=== PATIENT | female | born 1970 ===

== ENCOUNTER 2016-09-06 19:34 | Emergency (ER) | payer SELFPAY ==
[2016-09-06 19:34] VITALS: BMI 25.1
[2016-09-06 20:02] VITALS: BP 119/80; PULSE 60; RESP 18; TEMP 98.2; O2SAT 100
[2016-09-06] MEDS ORDERED: Lactated Ringer's 1,000 ML IV STA (20:28)
[2016-09-06 20:42] LABS: BASO % 0.5 % (0.0-2.0); EOS % 0.4 % (0.0-4.0); HEMATOCRIT 37.2 % (34.0-47.0); LYMPH # 2.4 K/uL (1.0-4.3); LYMPH % 30.3 % (20.0-40.0); MEAN CELL VOLUME 92.6 fl (81.0-99.0); MEAN CORPUSCULAR HEMOGLOBIN 30.6 pg (27.0-31.0); MEAN PLATELET VOLUME 9.5 fl (7.2-11.7); MONO # 0.6 K/uL (0.0-0.8); MONO % 7.7 % (0.0-10.0); NEUT # 4.8 K/uL (1.8-7.0); NEUT % 61.1 % (50.0-75.0); NRBC % 0.1 % (0.0-0.0); WHITE BLOOD COUNT 7.8 K/uL (4.8-10.8)
[2016-09-06 20:50] LABS: ALB/GLOB RATIO 1.3 (1.0-2.1); ALKALINE PHOSPHATASE 76 U/L (38-126); ALT/SGPT 26 U/L (9-52); AST/SGOT 23 U/L (14-36); BILIRUBIN,TOTAL 0.2 mg/dl (0.2-1.3); BLOOD UREA NITROGEN 12 mg/dl (7-17); CALCIUM 9.2 mg/dL (8.4-10.2); CARBON DIOXIDE 23 mmol/L (22-30); CHLORIDE 103 mmol/L (98-107); GFR AFRICAN-AMERICAN > 60; GLUCOSE,RANDOM 91 mg/dL (65-105); POTASSIUM 3.7 MMOL/L (3.6-5.0); SODIUM 137 mmol/l (132-148); TOTAL PROTEIN 7.5 G/DL (6.3-8.2)
--- NOTE | 2016-09-06 21:29 | ED PDOC ---
HPI: Abdomen Time Seen by Provider: 09/06/16 20:12 Chief Complaint (Nursing): Abdominal Pain Chief Complaint (Provider): Abdominal Pain History Per: Patient History/Exam Limitations: no limitations Onset/Duration Of Symptoms: Hrs Current Symptoms Are (Timing): Still Present Additional Complaint(s): 46 y/o female presents to the emergency department with a complaint of abdominal cramping that began around 4pm today but started worsening at 6pm. Associated with nausea. Patient states she had been experiencing episodes of vaginal spotting but was unsure due to difficulty of determining if it was her period. Admits she is taking vitamins and will have her first clinic appointment on Tuesday. On August 17, patient visited the ED and was told she was . Denies vomiting, dysuria, or frequency of urination. Of note, patient is now 12 weeks . ; with 1 spontaneous miscarriage. PMD: Dr. Isiah RODRIGUEZ Past Medical History Reviewed: Historical Data, Nursing Documentation, Vital Signs Vital Signs: Last Vital Signs Temp 98.2 F 09/06/16 19:58 Pulse 60 09/06/16 19:58 Resp 18 09/06/16 19:58 BP 119/80 09/06/16 19:58 Pulse Ox 100 09/06/16 21:40 - Medical History PMH: No Chronic Diseases - Surgical History Surgical History: No Surg Hx - Family History Family History: States: Unknown Family Hx - Social History Current smoker - smoking cessation education provided: No Alcohol: None Drugs: Denies - Immunization History Hx Tetanus Toxoid Vaccination: No Hx Influenza Vaccination: No Hx Pneumococcal Vaccination: No - Home Medications Home Medications: Ambulatory Orders Medication Instructions Recorded Multivit/Folic Acid/I 1 tab PO DAILY #14 tab 08/17/16 [ Plus] - Allergies Allergies/Adverse Reactions: Allergies Allergy/AdvReac Type Severity Reaction Status Date / Time No Known Allergies Allergy Verified 08/17/16 09:38 Review of Systems ROS Statement: Except As Marked, All Systems Reviewed And Found Negative Gastrointestinal: Positive for: Nausea, Abdominal Pain (Cramping). Negative for : Vomiting Genitourinary Female: Positive for: Other (Episodes of vaginal spotting ). Negative for: Dysuria, Frequency Physical Exam - Reviewed Nursing Documentation Reviewed: Yes Vital Signs Reviewed: Yes - Physical Exam Appears: Positive for: Non-toxic, In Acute Distress (Mild) Head Exam: Positive for: ATRAUMATIC, NORMOCEPHALIC Skin: Positive for: Normal Color, Warm, Dry Eye Exam: Positive for: Normal appearance. Negative for: Conjunctival injection ENT: Positive for: Normal ENT Inspection. Negative for: Tonsillar Swelling Neck: Positive for: Normal, Supple Cardiovascular/Chest: Positive for: Regular Rate, Rhythm. Negative for: Murmur Respiratory: Positive for: Normal Breath Sounds. Negative for: Accessory Muscle Use, Respiratory Distress Gastrointestinal/Abdominal: Positive for: Soft, Tenderness (mild suprapubic tenderness to palpation) Back: Positive for: Normal Inspection Extremity: Positive for: Normal ROM. Negative for: Pedal Edema Neurologic/Psych: Positive for: Alert, Oriented - Laboratory Results Result Diagrams: 09/06/16 20:30 09/06/16 20:30 - ECG O2 Sat by Pulse Oximetry: 100 (RA) Pulse Ox Interpretation: Normal Medical Decision Making Medical Decision Making: Time: 20:12 Initial impression: Pelvic cramping in high risk Initial plan: --Beta-HCG, Quantitative --COMP Metabolic Panel --ED Urine Dipstick (POC) --ED Urine (POC) --Lactated Ringers 1,000 ml IV 1,000 mls/hr --IV Insertion --OB US --Revaluation EXAM: US First Trimester, Transabdominal CLINICAL HISTORY: 46 years old, female; Pain; Other: Pelvic pain; Gestational age or lmp: Unknown ; ; Additional info: Pelvic pain preg R/O demise TECHNIQUE: Real-time transabdominal obstetrical ultrasound of the maternal pelvis and a first trimester with image documentation. COMPARISON: No relevant prior studies available. FINDINGS: Gestation: Single live intrauterine gestation. heart rate of 168 beats per minute. Nebo-rump length of 5.26 cm, correlating with gestational age of 12 weeks 0 days. Uterus/cervix: No subchorionic hemorrhage. No cervical dilatation or effacement. Ovaries: Not visualized. No adnexal masses. Free fluid: No significant free fluid. IMPRESSION: 1. Single live intrauterine gestation. 2. Incidental/non-acute findings are described above. Thank you for allowing us to participate in the care of your patient. Dictated and Authenticated by: Michael Snow MD 09/06/2016 9:54 PM Eastern Time ([place] & [place]) Scribe Attestation: Documented by Alessandra De Los Santos, acting as a scribe for Dawn Singh MD. Provider Scribe Attestation: All medical record entries made by the Scribe were at my direction and personally dictated by me. I have reviewed the chart and agree that the record accurately reflects my personal performance of the history, physical exam, medical decision making, and the department course for this patient. I have also personally directed, reviewed, and agree with the discharge instructions and disposition. Disposition - Clinical Impression Clinical Impression: Abdominal cramps Counseled Patient/Family Regarding: Studies Performed, Diagnosis, Need For Followup - Disposition Disposition: Routine/Home Disposition Time: 23:00 Condition: STABLE Additional Instructions: REID MUCHO LIQUIDOS VISITA KHOURY DOCTOR POR KHOURY ELVIS ESTA SEMANA Instructions: Abdominal Pain in (ED) Forms: [facility] ED School/Work Excuse Print Language: CENTRAL AFRICAN
--- NOTE | 2016-09-07 10:27 | US ---
Indication: pelvic pain preg r/o demise Comparison: Ob transvaginal ultrasound performed 08/17/16 Technique: Transabdominal pelvic ultrasound. Findings: Anteverted uterus. Cervix length measures approximately 3.9 cm. There is a single intrauterine fetus present. Yolk sac is not identified. The gestational sac measures 5.7 cm and is compatible with a gestational age of 11 weeks 5 days. The crown-rump length measures 5.3 cm and is compatible with a gestational age of 12 weeks 0 days. There is heart motion which measured 168 BPM. Bilateral ovaries are not visualized. Impression: Live single intrauterine with estimated gestational age 11 weeks 5 days by gestational sac calculation and 12 weeks 0 days by crown-rump length. heart rate 168 bpm. Advise an anomaly screen at 16-18 weeks gestational age Preliminary impression was provided by virtual radiologic.
== END 2016-09-06 23:10 | disposition home or self-care (01) ==
LOC: H.ER 19:34
DX: O26.891 Other specified pregnancy related conditions, first trimester (principal); R10.2 Pelvic and perineal pain; Z3A.12 12 weeks gestation of pregnancy; O21.9 Vomiting of pregnancy, unspecified
CPT/HCPCS: 76815; 80053; 81025; 84702; 85025; 96360; 99284; J7120

== ENCOUNTER 2016-11-12 09:47 | Emergency (ER) | payer SELFPAY ==
--- NOTE | 2016-11-15 08:50 | OBHP ---
Datetime: 11/12/2016 12:52 IP Adm Impression: , intrauterine ; No Active Labor IP Admit Plan: Observation/Evaluation; Discharge home Admit Comment, IP Provider: The patient is a 46-year-old 4 para 2 estimated due date 017 estimated gestational age 21 weeks patient presents to labor and delivery complaining of abdomina l discomfort located on the left side crampy in nature. Patient had no medication for the pain patien t denies any vaginal bleeding or leakage of fluid or uterine contractions. Patient reports good movement states her care has been unremarkable Past medical history none Past surgical history none No known drug allergies Social history denies alcohol tobacco use 2 normal spontaneous vaginal deliveries Review of systems patient denies headache chest pain shortness of breath palpitations nausea vomit ing vaginal bleeding dysuria or cold intolerance she's principally musculoskeletal or neurological co mplaints Vital signs stable afebrile Physical exam see notes Intrauterine at 21+3 weeks No uterine contractions noted on tocometer Round ligament pain Tylenol for discomfort labor precautions Follow-up PMD Bedside sonogram placenta fundal fetus transverse Pelvic Type - PN: Adequate Extremities - PN: Normal Abdomen - PN: Normal Back - PN: Normal Lungs - PN: Normal Heart - PN: Normal Thyroid - PN: Normal Neurologic - PN: Normal HEENT - PN: Normal General - PN: Normal FHR - Baseline A Provider: 145 Gestation - Est Wks by US: 21.0 EGA AdmitDate IP: 21.4 Vital Signs Provider: Reviewed IP Chief Complaint: Maternal discomfort NICHD Decel Fetus A IP Provider: None Dilatation, Provider: 0 Effacement, Provider: 0 Station, Provider: -2 Genitourinary Exam: Normal DTRs - PN: Normal
== END 2016-11-12 10:55 | disposition home or self-care (01) ==
LOC: H.EROB2 09:47 → H.EROB 09:47 → MERGE 09:47 → H.EROB2 10:55
DX: O47.02 False labor before 37 completed weeks of gestation, second trimester (principal); Z3A.21 21 weeks gestation of pregnancy

== ENCOUNTER 2017-02-08 22:20 | Emergency (ER) | payer SELFPAY ==
[2017-02-08 22:55] VITALS: BMI 32.0
--- NOTE | 2017-02-09 00:10 | OBHP ---
Datetime: 02/08/2017 23:23 IP Adm Impression: , intrauterine ; No Active Labor IP Admit Plan: Observation/Evaluation; Discharge home Admit Comment, IP Provider: 46 y/o at 34.1wks gestation with ALVERTO on 02/19 presents to [facility] with complaints of vaginal spotting x 10hours and intermittent abdominal pain q 1.5hrs. [place] tinge noted on toilet paper. Reports mild white vaginal discharge. Pt denies loss of fluid, hx of trauma, vagina l itchiness, fever, chills. Currently, pain scale 0. REports goof movement. PNC: Seen at [facility], last U/S 02/01 no previa, cephalic ObsHx: 2 prior , full term w/ no complications, 1 SAB 1 st trimester PMHx: denies SurgHx: denies RxMeds: PNV Allergies: Denies Triage Vitals: BP 100/61, HR 51, Afebrile General: NAD, comfortable Sterile Speculum Exam: Cervix closed, inflammed, no active bleeding from cervical os, +white clump y discharge Pelvic exam: Cervix 1cm Assessment: IUP at 34wks with vaginal bleeding found to have inflamed cervix with discharge. No si gns of labor. Reassuring heart tracings. Likely cervicitis 2/2 to fungal infection. Will observ e patient, continuous monitoring. D/C home with Terazole x 7 days. Advised patient to followup with OB as scheduled. Pt verbalized understanding. Discussed case with OB Attending, Dr. Robert Alves, PGY1 The patient was seen with the resident I agree with the note Pelvic Type - PN: Adequate Extremities - PN: Normal Abdomen - PN: Normal Back - PN: Normal Breast - PN: Not Done Lungs - PN: Normal Heart - PN: Normal Thyroid - PN: Normal Neurologic - PN: Normal HEENT - PN: Normal General - PN: Normal FHR - Baseline A Provider: 145 Pool Provider: Negative EGA AdmitDate IP: 34.1 Vital Signs Provider: Reviewed IP Chief Complaint: Vaginal bleeding NICHD Variability Prov Fetus A: Moderate 6-25bpm NICHD Accel Fetus A IP Provider: 15X15 NICHD Decel Fetus A IP Provider: None Dilatation, Provider: 0 Effacement, Provider: 0 Station, Provider: -2 Genitourinary Exam: Normal DTRs - PN: Normal
[2017-02-09 05:25] VITALS: BP 116/70; PULSE 56; RESP 18; TEMP 97.5; O2SAT 96
== END 2017-02-09 00:15 | disposition home or self-care (01) ==
LOC: H.EROB2 22:20
DX: O26.853 Spotting complicating pregnancy, third trimester (principal); O47.03 False labor before 37 completed weeks of gestation, third trimester; Z3A.34 34 weeks gestation of pregnancy

== ENCOUNTER 2017-03-04 10:44 | Inpatient (IN) | payer MEDICAID, SELFPAY ==
[2017-03-04] MEDS ORDERED: Lactated Ringer's 1,000 ML IV SCH (15:00)
[2017-03-04] MEDS: Lactated Ringer's 1,000 ML IV SCH ×2 (15:43→21:24)
[2017-03-04] MEDS ORDERED: Oxytocin 10 Units/ml Inj ONE (15:53)
[2017-03-04 15:59] LABS: BASO % 0.2 % (0.0-2.0); EOS % 0.1 % (0.0-4.0); LYMPH % 21.4 % (20.0-40.0); MEAN CELL VOLUME 91.8 fl (81.0-99.0); MEAN CORPUSCULAR HEMOGLOBIN 29.6 pg (27.0-31.0); MEAN CORPUSCULAR HGB CONC 32.2 g/dL (33.0-37.0); MEAN PLATELET VOLUME 12.2 fl (7.2-11.7); MONO # 0.5 K/uL (0.0-0.8); MONO % 5.4 % (0.0-10.0); NEUT # 6.7 K/uL (1.8-7.0); NEUT % 72.9 % (50.0-75.0); NRBC % 0.1 % (0.0-0.0); RED CELL DISTRIBUTION WIDTH 14.4 % (11.5-14.5); WHITE BLOOD COUNT 9.2 K/uL (4.8-10.8)
[2017-03-04] MEDS ORDERED: Lidocaine 1% Inj (20ml) ONE (16:41)
[2017-03-04] MEDS ORDERED: Oxytocin 30 UNITS in Sodium Chloride 0.9% 500 ML IV ONE (17:25)
--- NOTE | 2017-03-04 22:25 | OBPN ---
Datetime: 03/04/2017 22:18 IP Progress Impression: Normal progression of labor IP Informed Consent Obtain: Vaginal Delivery IP Procedures: Sterile Vag Exam IP Progress Plan: Continue present management Contraction Comments Provider: q 2-3 mins FHR - Baseline A Provider: 150 IP Progress Note Comment: Patient reports increased pain. VE=1/50/-2 BTK=000 mod josué, +accels, no decels TOCO = ctxning q 2-3 mins A/P 1. Continue Cytotec for augmentation 2. CEFM and TOCO 3. Re-evaluate as needed Vital Signs Provider: Reviewed; Within Normal Limits NICHD Accel Fetus A IP Provider: [id number] NICHD Variability Prov Fetus A: Moderate 6-25bpm Dilatation, Provider: 1 Effacement, Provider: 50 Station, Provider: Patient-2 NICHD Decel Fetus A IP Provider: None Datetime: 03/04/2017 18:35 Pool Provider: Positive Nitrazine Provider: Negative Datetime: 03/04/2017 18:25 FHR Category Provider Fetus A: Category I Datetime: 11/12/2016 12:52 Gestation - Est Wks by US: 21.0
[2017-03-04] MEDS ORDERED: Fentanyl/Bupivacaine HCl 250 ML EPI ONE (22:32)
--- NOTE | 2017-03-04 22:39 | OBADHP ---
Datetime: 03/04/2017 22:18 FHR - Baseline A Provider: 150 Contraction Comments Provider: q 2-3 mins Vital Signs Provider: Reviewed; Within Normal Limits NICHD Variability Prov Fetus A: Moderate 6-25bpm NICHD Accel Fetus A IP Provider: [id number] NICHD Decel Fetus A IP Provider: None Dilatation, Provider: 1 Effacement, Provider: 50 Station, Provider: Patient-2 Datetime: 03/04/2017 18:35 Extremities - PN: Normal Abdomen - PN: Normal Lungs - PN: Normal Heart - PN: Normal Neurologic - PN: Normal General - PN: Normal Comments, ACOG Physical Exam: PNI: HSV+, treated for months PNL: GBS-, hiv,RIR, HEPB negative. rubella immune Pool Provider: Positive Nitrazine Provider: Negative IP Chief Complaint: Suspected ruptured membranes; Maternal discomfort; evaluation Genitourinary Exam: Normal EGA AdmitDate IP: 37.4 IP Adm Impression: Term, intrauterine IP Admit Plan: Admit to unit; Initiate labor protocol; Observation/Evaluation Datetime: 03/04/2017 18:25 Admit Comment, IP Provider: 47 y/o at 37+ wks gestation with ALVERTO on 03/21/17 sent to [facility] from [facility] clinic after patient was found to have SROM. As per pt she was leaking fluid since yesterday 1 1am but she waited for clinic aptm to see a doctor. +CTX/+FM. Pt denies hx of trauma, vaginal itchine ss, fever, chills. Reports good movement. PNC: Seen at [facility], U/S 02/01 no previa, cephalic PNI: HSV+, treated for months PNL: GBS-, hiv,RIR, HEPB negative. rubella immune ObsHx: 2 prior , full term w/ no complications, 1 SAB 1 st trimester PMHx: denies SurgHx: denies RxMeds: PNV Allergies: Denies Triage Vitals: stable, Afebrile General: NAD, comfortable Sterile Speculum Exam: +ROM, pulling, +nitrate Pelvic exam: Cervix 1cm dil, thick and high A/P: 47 y/o at 37+ wks gestation with ALVERTO on 03/21/17 sent to [facility] from the [facility] clinic after carlos reese was found to have SROM. - Admit patient - IVF - Labs - reevaluate for further changes Case discussed with Dr. Briggs --- Shyann Abreu, PGY-[address] Briggs: I have evaluated the patient independently and I agree with the above. Pelvic Type - PN: Adequate Back - PN: Normal Breast - PN: Not Done Thyroid - PN: Not Done HEENT - PN: Not Done FHR Category Provider Fetus A: Category I DTRs - PN: Normal Datetime: 11/12/2016 12:52 Gestation - Est Wks by US: 21.0
[2017-03-05] MEDS: Lactated Ringer's 1,000 ML IV SCH ×2 (04:23→08:00)
[2017-03-05] MEDS ORDERED: Oxytocin 30 units/LR 500ML 30 U/500 ML BAG IV ONE (04:29)
[2017-03-05] MEDS ORDERED: Oxytocin 30 UNITS in Sodium Chloride 0.9% 500 ML IV ONE (04:45)
[2017-03-05] MEDS ORDERED: ceFAZolin IV 2 gm in Dextrose 2 GM/50 ML BAG IVPB ONE ×2 (12:35→12:36)
--- NOTE | 2017-03-05 12:50 | OBPN ---
Datetime: 03/05/2017 12:32 IP Progress Note Comment: Called by nurse to evaluate FMS with late decel s/p cytotec #5(@10:30) cytotec #4 @ 12:00 s: no c/o. Denies headache blurred vision and spots in her vision midepigastric or right upper gary drant pain. o: 130-150/60-100 since 7am fhr 140s moder variab; intermittent late decels and variable decels remote from delivery ctx q2-4min 1.5cm/40/firm/post/-2 I: Fetus with intermittent intolerance to ctxs, remote from delivery s/p SROM x2days- no evidence of infection AMA Elevated BPs since this a.m. Plan: Patient consented for primary section risks benefits and indications discussed with jolie mccartney Versus nonintervention she procedure. Blood pressures have been taken on lower extremity will place blood pressure cuff on upper extremi ty to reevaluate blood pressures.
[2017-03-05] MEDS ORDERED: ePHEDrine 50 mg/ml Inj ONE (13:42)
[2017-03-05] MEDS ORDERED: Lidocaine 2% MPF (5 ml) Inj ONE (13:52)
[2017-03-05] MEDS ORDERED: Midazolam 2 MG/2 ML VIAL ONE (15:00)
[2017-03-05] MEDS ORDERED: Oxycodone/Acetaminophen 5/325 mg Tab PO PRN ×3 (16:08→22:07)
--- NOTE | 2017-03-05 16:34 | OBDS ---
DELIVERY PERSONNEL Delivery Doctor: Zurdo Dang MD Scrub Nurse: Lisa Quezada Rn Prior Authorization: Bebe Russo RN Anesthesiologist: Dr. Martinez Resident: Dr. Abreu MATERNAL INFORMATION Delivery Anesthesia: Epidural Medications in Delivery: Pitocin 30 units Estimated Blood Loss (ml): 700 Placenta Cultured: No Maternal Complications: Prolonged Labor > 20 Hrs RN Comments: see provider notes Provider Comments: Preoperative diagnosis: PROM at 37.5 weeks; intolerance to contractions Postoperative diagnosis same procedure primary section low transverse Surgeon: Zurdo [facility] assistant director Dr. Campoverde Second fleet administrative assistant Dr. Abreu PGY [address] Dougherty Findings: Viable female with a weight of 5 lbs. 10 oz. Apgars of 9 and 9; 2560 g Pathology: Placentas sent Catheter: Mcneill Disposition patient to recovery room in satisfactory condition to nursery [id number] [facility]# LABOR SUMMARY EDC: 03/21/2017 00:00 No. Babies in Womb: 1 Attempted: No Labor Anesthesia: Epidural LABOR INFORMATION Reason for Induction: Not Applicable Cervical Ripening Agents: Cytotec @ Oxytocin: Augmentation Group B Beta Strep: Negative Steroids Given: None Reason Steroids Not Administered: Not Applicable MEMBRANES Membranes Rupture Method: Spontaneous Rupture of Membranes: 03/03/2017 11:00 Length of Rupture (hrs): 51.60 Amniotic Fluid Color: Clear Amniotic Fluid Amount: Small Amniotic Fluid Odor: Normal STAGES OF LABOR Stage 3 hrs: 0 Stage 3 min: 1 CSECTION DELIVERY Primary Indication: Other Other Primary Indication: intolerance to contractiion CSection Urgency: Elective CSection Incidence: Primary Labor: Labor Elective: Elective CSection Incision: Lower Uterine Transverse BABY A INFORMATION Infant Delivery Date/Time: 03/05/2017 14:36 Method of Delivery: Born in Route : No : N/A Forceps: N/A Vacuum Extraction: N/A Shoulder Dystocia : No SHOULDER DYSTOCIA BABY A Infant Delivery Date/Time: 03/05/2017 14:36 PRESENTATION/POSITION BABY A Presentation: Cephalic Cephalic Presentation: Vertex Breech Presentation: N/A PLACENTA INFORMATION BABY A Placenta Delivery Time : 03/05/2017 14:37 Placenta Method of Delivery: Spontaneous Placenta Status: Delivered SCORES BABY A Heart Rate 1 min: >100 bpm Resp Effort 1 min: Good Cry Reflex Irritability 1 min: Cough or Sneeze or Pulls Away Muscle Tone 1 min: Active Motion Color 1 min: Body [place], Extremities Blue Resuscitation Effort 1 min: Tactile Stimulation SCORE 1 MIN: 9 Heart Rate 5 min: >100 bpm Resp Effort 5 min: Good Cry Reflex Irritability 5 min: Cough or Sneeze or Pulls Away Muscle Tone 5 min: Active Motion Color 5 min: Body [place], Extremities Blue Resuscitation Effort 5 min: Tactile Stimulation SCORE 5 MIN: 9 INFANT INFORMATION BABY A Gestational Age at Delivery: 37.0 Gestational Status: Term Outcome : Liveborn Infant Condition : Stable Infant Sex: Female IDENTIFICATION/MEDS BABY A ID Band Number: [id number] ID Band Location: Left Leg; Left Arm WEIGHT/LENGTH BABY A Infant Birthweight (gms): 2560 Weight (lb): 5 Infant Weight (oz): 10 CORD INFORMATION BABY A No. Cord Vessels: 3 Nuchal Cord : N/A Nuchal Cord Other: n/a True Knot: n/a Cord Blood Taken: N/A Suction: None ASSESSMENT BABY A Complications: Multiple Late Decels Physical Findings at Delivery: Within Normal Limits Respirations: Appears Normal Iron Cutter/ALS Called : No Infant Care By: Dawn Saldana Transferred To: Remains with Mother
[2017-03-05 19:27] VITALS: O2SAT 98
[2017-03-05] MEDS ORDERED: Lactated Ringer's 1,000 ML IV SCH (22:07)
--- NOTE | 2017-03-06 00:09 | OP ---
PROCEDURE DATE: PREOPERATIVE DIAGNOSES: 1. Premature rupture of membranes at 37.5 weeks. 2. intolerance to contractions. 3. Advanced Maternal Age POSTOPERATIVE DIAGNOSES: 1. Premature rupture of membranes at 37.5 weeks. 2. intolerance to contractions. 3. Advanced Maternal Age PROCEDURE: Primary section, low transverse. SURGEON: Galdino Fernandze MD SAUSAGE INSPECTOR: Isidro Campoverde MD. SECOND AUTOBODY TECHNICIAN: Dr. Abreu, PGY-1. TYPE OF ANESTHESIA: Epidural. ANESTHESIOLOGIST: Nandini Martinez MD FINDINGS: Showed a viable female in vertex presentation with the weight of 2560 g equal to 5 pounds 10 ounces. Apgars of 9 and 9. Clear amniotic fluid. Grossly normal bilateral ovaries, tubes and grossly normal uterus. PATHOLOGY: Placenta sent. DRAINS: Mcneill catheter to drainage. ESTIMATED BLOOD LOSS: 700 mL. COMPLICATIONS: None. DISPOSITION: The patient to recovery room in satisfactory condition and to Nursery. INDICATIONS: The patient is a 47-year-old female 4, para 2, who presented at 37 plus weeks with history of premature rupture of membranes on the day preceding her presentation to the hospital. She was referred by the clinic for an induction. The patient received Cytotec x5. With the fifth dose, she was noted to develop late decelerations and intermittent variables with good recovery; however, given the was remote from delivery, it was decided to proceed with a primary section. Informed consent was obtained. Risks, benefits, indications of intervention versus nonintervention discussed with the patient and she agreed with planned procedure. DESCRIPTION OF PROCEDURE: The patient was taken to the OR. She was placed in dorsal supine with a leftward tilt and prepped and draped in the routine sterile fashion. A Pfannenstiel skin incision was made with the scalpel and this was carried down to the underlying rectus fascia, which was incised in the midline and extended bilaterally. The inferior rectus fascial edges were grasped with Marylou's, elevated, and the underlying rectus muscle was dissected off. The same procedure was performed along the superior rectus fascial edge. The rectus muscle was in the midline and the peritoneum was identified and entered bluntly. The incision was extended inferiorly with the Metzenbaum. A bladder blade was placed and the bladder flap was created using sharp and blunt dissection. Lower uterine transverse incision was made with a knife and the uterine cavity was entered bluntly. Uterine incision was digitally extended in a cephalocaudad manner. The 's head was delivered atraumatically followed by delivery of the remaining portion of the baby. The cord was clamped and cut, mouth and nares were suctioned, and the baby was handed off to the awaiting nurse practitioner per diem. Cord blood was collected. The placenta was delivered spontaneously and intact. The uterus was exteriorized and cleared of all clots and debris. The uterine incision was reapproximated with 0 Vicryl in a running locked fashion, followed by an imbricated stitch of 0 Monocryl. The abdomen was irrigated, cleared of all clots and debris. The uterus was returned to the abdomen and the uterine incision was reinspected. Good hemostasis was confirmed. The pelvis was irrigated and cleared of all clots and debris. The peritoneum was reapproximated with 2-0 Vicryl in a running fashion. The rectus muscle was reapproximated with 2-0 Vicryl in a simple interrupted fashion. The fascia was reapproximated with 0 Vicryl in a running fashion beginning at the right lateral corner going to the midline, another stitch beginning at the left lateral corner going to midline, each was respectively tied. The wound was irrigated, good hemostasis confirmed. Subcutaneous tissue was reapproximated with 2-0 plain in simple interrupted fashion. The skin was reapproximated with 3-0 Vicryl on a Janusz needle. All sponge and lap counts were correct. Of note, Dr. Isidro Campoverde, was my first helper; he assisted in surgical entry, surgical hemostasis, surgical exposure. He assisted in delivery of the baby and surgical closure. His assistance was essential to the performance of the procedure. Galdino Fernandez MD WILBERT
--- NOTE | 2017-03-06 07:42 | OBPPN ---
Datetime: 03/06/2017 07:34 PP Pain Prov: Within normal limits PP Nausea Prov: Denies PP Flatus Prov: Yes PP BM Prov: No PP Abdomen/Uterus Prov: Normal PP Lochia Prov: Normal PP Extremities Prov: Normal PP C/S Incision Prov: Normal PP Progress Prov: Normal PP Comments Phys Exam Prov: Incision w/ dry clean bandage in place PP Impression Prov: Normal progression PP Plan Prov: Continue present management PP Progress Note Prov: POD 1 s/p primary c/s, doing well, trying to breast feed Continue current managment Vital Signs Provider PP: Reviewed
[2017-03-06 08:01] LABS: BASO % 0.1 % (0.0-2.0); EOS % 0.1 % (0.0-4.0); HEMATOCRIT 27.1 % (34.0-47.0); LYMPH # 1.7 K/uL (1.0-4.3); LYMPH % 18.4 % (20.0-40.0); MEAN CELL VOLUME 91.9 fl (81.0-99.0); MEAN CORPUSCULAR HEMOGLOBIN 29.3 pg (27.0-31.0); MEAN CORPUSCULAR HGB CONC 31.9 g/dL (33.0-37.0); MEAN PLATELET VOLUME 11.4 fl (7.2-11.7); MONO # 0.6 K/uL (0.0-0.8); MONO % 6.9 % (0.0-10.0); NEUT # 6.9 K/uL (1.8-7.0); NEUT % 74.5 % (50.0-75.0); RED CELL DISTRIBUTION WIDTH 14.4 % (11.5-14.5); WHITE BLOOD COUNT 9.2 K/uL (4.8-10.8)
[2017-03-06] MEDS: Oxycodone/Acetaminophen 5/325 mg Tab PO PRN ×2 (11:37→22:08)
[2017-03-07] MEDS: Oxycodone/Acetaminophen 5/325 mg Tab PO PRN (02:04)
[2017-03-07] MEDS: Simethicone 80 mg Chewtab PO SCH ×4 (11:29→18:00)
--- NOTE | 2017-03-07 11:40 | OBPPN ---
Datetime: 03/07/2017 06:33 PP Pain Prov: Within normal limits PP Nausea Prov: Denies PP Flatus Prov: Yes PP BM Prov: No PP Breasts Prov: Normal PP Heart Prov: Normal PP Lungs Prov: Normal PP Abdomen/Uterus Prov: Normal PP Lochia Prov: Normal PP Vulva/Perineum Prov: Not Done PP CVA Tenderness Prov: Not Done PP Extremities Prov: Normal PP C/S Incision Prov: Normal PP Progress Prov: Normal PP Comments Phys Exam Prov: clean incision Patient trying to breasfeed PP Impression Prov: Normal progression PP Plan Prov: Continue present management; consult PP Progress Note Prov: S: 47 y/o F, s/p on 03/05/17 at 4 PM. Pt. is seen and examined at bedside this AM. No overnight events. Pt reports mild to mod abdominal pain, but well controlled with pain meds. d/c garvey, incision site looks normal, and clean. no nausea, or vomiting, pt is neelima ating regular diet. Bottle feeding, due to some breast feeding difficulties. Lochia is similar to men ses volume. no Bowel movement, but passing gas per rectum. Denies fever/chills, diarrhea, nausea/vomi ting, chest pain, dyspnea, and dizziness. O: VS: stable GEN: NAD, seen baby Cardio: s1s2, no M/G/R Resp: clear breath sounds b/l Abdomen: BS+, tenderness to palpation. Incision scar noted, well healing no exudate seen, dry and intact. Uterus is firm and at the level of the umbilicus. EXT: No edema, calves nontender NEURO/PSYCHI: AAOx3, no grossly focal deficit, preserved affect and mood. Assessment/Plan: 47 y/o F, s/p on 03/05/17 at 4 PM. Pt remains afebrile, tolerating pain with medication, doing well on POD#2. OOB with caution SCDs for DVT prophylaxis, encouraged ambulating Percocet 5/325mg, and Ibuprofen 600mg for pain. Senokot for constipation Encourage and ambulating CBC post op, [phone], will give iron script on d/c Anticipated d/c to home tomorrow, 03/08/17. --- Shyann Abreu, PGY1 OB attending addendum: Patient seen and examined by me. Agree with above assessment and plan following additions. Patient complains of constipation. She states she has been taking Percocet for her pain. Plan: Discussed with patient side effects of constipation with Percocet advised to increase intake of ib uprofen and decrease intake of Percocet. Continue with Senokot daily Ducolox suppository prn. Mylicon. Prune juice today. Avoid carbonated beverages. Increase water intake. IP PP Procedures: None Vital Signs Provider PP: Reviewed; Within Normal Limits
--- NOTE | 2017-03-08 10:13 | OBPPN ---
Datetime: 03/08/2017 06:04 PP Pain Prov: Within normal limits PP Nausea Prov: Denies PP Flatus Prov: Yes PP BM Prov: Yes PP Breasts Prov: Not Done PP Heart Prov: Normal PP Lungs Prov: Normal PP Abdomen/Uterus Prov: Normal PP Lochia Prov: Normal PP Vulva/Perineum Prov: Not Done PP CVA Tenderness Prov: Normal PP Extremities Prov: Normal PP C/S Incision Prov: Normal PP Comments Phys Exam Prov: Clean dry incision PP Impression Prov: Normal progression; difficulties PP Plan Prov: Continue present management PP Progress Note Prov: POD#3 S: 47 y/o F, s/p on 03/05/17 at 4 PM. Pt. is seen and examined at bedside this AM. No overnight events. Mild pain controlled with pain meds, good diet, one BM yesterday, no issue voidi ng, ambulating without difficulty. Traying to breastfeed baby. Denies fever/chills, diarrhea, nausea/ vomiting, chest pain, dyspnea, and dizziness. O: VS: stable GEN: NAD, seen baby Cardio: s1s2, no M/G/R Resp: clear breath sounds b/l Abdomen: BS+, tenderness to palpation. Incision scar noted, well healing no exudate seen, dry and intact. Uterus is firm and at the level of the umbilicus. EXT: No edema, calves nontender NEURO/PSYCHI: AAOx3, no grossly focal deficit, preserved affect and mood. A/P: POD#3, 47 y/o F, s/p on 03/05/17 at 4 PM. D/c home today encouraged ambulating Percocet 5/325mg, and Ibuprofen 600mg for pain. Senokot for constipation Encourage CBC post op, 8.6/27.1, will give iron script on d/c Patient remains stable, instucted to follow up Wound check, and appointments af ter d/c --- Shyann Abreu, PGY1 OB Hospitalist note: Pt seen and examined this morning on rounds. Agree with PGY1 note Anemia asymptomatic MAHNDO IP PP Procedures: None Vital Signs Provider PP: Reviewed
--- NOTE | 2017-03-08 10:13 | OBDCSUM ---
Datetime: 03/08/2017 06:10 Discharged to, Provider: Home Follow up at, Provider: [facility] clinic at [facility] [address] Disch Instr Activity: Normal activity Disch Instr Diet: Regular Discharge Instructions, Provider: Routine instructions given Discharge Diagnosis, Provider: Term Delivered Discharge Time: 03/08/2017 10:00 Follow up in weeks, Provider: WC visit:03/16@1pm, PP: 04/22/17@9am Disch Referrals: None Contraception discussed, Prov: Yes Disch Activity Restrictions: No exercising; No lifting; No sexual activity; Nothing in vagina - Inte rcourse, tampons, douche Discharge Comment, Provider: 47 y/o female, , Delivered @ 37.4 to a baby girl via afte r 30 hours of SROM and arrest of labor progression. Uncomplicated course. Mother is doing well, Lochia is minimal, pt is ambulating, tolerating PO diet,+ BM and remains afebrile. 1. Encourage 2. Continue PNV 1 tab/day 3. Ibuprofen/Percocet for pain. Iron for acute blood loss anemia and Senokot for constipation. 4. Ambulatory with caution, nothing per vagina, no heavy lifting, avoid stairs, if excessive bleed ing or fever without relief from Tylenol go to ED 5. F/U at [facility] for WC visit on 03/16/17@1pm and PP visit on 04/22/17@9am Follow up certified registered locksmith for Baby in 3-4 days Patient is stable for d/c home Case discussed with Attending --- Shyann Abreu, PGY-1 OB Hospitalist note: Pt seen and examined this morning on rounds. Agree with PGY1 note MAHNDO Contraception after Delivery: Undecided
[2017-03-08 22:05] VITALS: BP 131/77; PULSE 62; RESP 18; TEMP 97.6
== END 2017-03-08 17:50 | disposition home or self-care (01) | DRG 765 ==
LOC: H.EROB2 10:44 → H.L&D 10:44 → H.EROB2 14:54 → H.OB/GYN 03-05 21:00
PROVIDERS: ADMIT Obstetrics & Gynecology; ATTEND Obstetrics & Gynecology
PROC: 4A1HXCZ Monitoring of Products of Conception, Cardiac Rate, External Approach (ICD-10-PCS; 2017-03-04)
PROC: 10D00Z1 Extraction of Products of Conception, Low, Open Approach (ICD-10-PCS; principal; 2017-03-05)
DX: O76 Abnormality in fetal heart rate and rhythm complicating labor and delivery (principal); O63.9 Long labor, unspecified; Z37.0 Single live birth; O99.02 Anemia complicating childbirth; O42.02 Full-term premature rupture of membranes, onset of labor within 24 hours of rupture; K59.00 Constipation, unspecified; Z3A.37 37 weeks gestation of pregnancy

== ENCOUNTER 2018-04-08 04:28 | Inpatient (IN) | payer SELFPAY ==
[2018-04-08] MEDS ORDERED: Sodium Chloride 0.9% 1,000 ML IV STA (04:43)
[2018-04-08] MEDS ORDERED: Morphine 4 MG/ML VIAL ONE (05:13)
--- NOTE | 2018-04-08 05:41 | ED PDOC ---
HPI: Abdomen <Humberto Smart III - Last Filed: 04/08/18 07:07> Chief Complaint (Provider): Abdominal Pain History Per: Patient History/Exam Limitations: no limitations Onset/Duration Of Symptoms: Days (x2) Current Symptoms Are (Timing): Still Present Additional Complaint(s): 48 year old female presents to ED with a complaint of diffuse abdominal pain associated with multiple episodes of nonbloody, nonbilious vomiting since yesterday. She denies any fever, chills, diarrhea, cough, shortness of breath, or chest pain. PCP: Dr. Eleanor Pereyra <Josiah Shahid - Last Filed: 04/08/18 19:27> Time Seen by Provider: 04/08/18 04:42 Chief Complaint (Nursing): Abdominal Pain Past Medical History Vital Signs: Last Vital Signs Temp 98.2 F 04/08/18 04:36 Pulse 79 04/08/18 04:36 Resp 17 04/08/18 04:36 BP 120/79 04/08/18 04:36 Pulse Ox 100 04/08/18 06:36 <Humberto Smart III - Last Filed: 04/08/18 07:07> Reviewed: Historical Data, Nursing Documentation, Vital Signs Vital Signs: Last Vital Signs Temp 98.2 F 04/08/18 04:36 Pulse 79 04/08/18 04:36 Resp 17 04/08/18 04:36 BP 120/79 04/08/18 04:36 Pulse Ox 100 04/08/18 04:36 - Medical History PMH: No Chronic Diseases Denies: Depression, Diabetes, HTN - Surgical History Surgical History: (x1) - Family History Family History: States: Unknown Family Hx - Immunization History Hx Tetanus Toxoid Vaccination: No Hx Influenza Vaccination: No Hx Pneumococcal Vaccination: No <Josiah Shahid - Last Filed: 04/08/18 19:27> - Allergies Allergies/Adverse Reactions: Allergies Allergy/AdvReac Type Severity Reaction Status Date / Time No Known Allergies Allergy Verified 03/04/17 12:44 Review of Systems ROS Statement: Except As Marked, All Systems Reviewed And Found Negative Constitutional: Negative for: Fever, Chills Cardiovascular: Negative for: Chest Pain Respiratory: Negative for: Cough, Shortness of Breath Gastrointestinal: Positive for: Vomiting (NBNB), Abdominal Pain (diffuse). Negative for: Diarrhea <Josiah Shahid - Last Filed: 04/08/18 19:27> Physical Exam - Reviewed Nursing Documentation Reviewed: Yes Vital Signs Reviewed: Yes - Physical Exam Appears: Positive for: Non-toxic, Uncomfortable Head Exam: Positive for: ATRAUMATIC, NORMAL INSPECTION, NORMOCEPHALIC Skin: Positive for: Normal Color Eye Exam: Positive for: Normal appearance ENT: Positive for: Normal ENT Inspection Neck: Positive for: Normal Cardiovascular/Chest: Positive for: Regular Rate, Rhythm Respiratory: Positive for: Normal Breath Sounds. Negative for: Respiratory Distress Gastrointestinal/Abdominal: Positive for: Soft, Tenderness (diffuse). Negative for: Guarding Back: Positive for: Normal Inspection. Negative for: L CVA Tenderness, R CVA Tenderness Extremity: Positive for: Normal ROM (upper/lower) Neurologic/Psych: Positive for: Alert, Oriented. Negative for: Motor/Sensory Deficits <Josiah Shahid - Last Filed: 04/08/18 19:27> - Laboratory Results Result Diagrams: 04/08/18 05:30 04/08/18 05:30 <Humberto Smart III - Last Filed: 04/08/18 07:07> - Laboratory Results Result Diagrams: 04/08/18 05:30 04/08/18 05:30 - ECG O2 Sat by Pulse Oximetry: 100 (RA) Pulse Ox Interpretation: Normal <Josiah Shahid - Last Filed: 04/08/18 19:27> Medical Decision Making Medical Decision Making: Initial Impression: 48 year old female with abdominal pain, nausea, and vomiting. Initial Plan: * CT ABD/pelvis * Labs * Morphine 4mg IVP * IV fluids * Pepcid 20mg IV * Zofran 4mg IV Time: 0700 --Patient to be endorsed to Dr. Smart, pending CT results. --- Scribe Attestation: Documented by Maya Chapman, acting as a scribe for Josiah Shahid MD. Provider Scribe Attestation: All medical record entries made by the Scribe were at my direction and person ally dictated by me. I have reviewed the chart and agree that the record accurately reflects my personal performance of the history, physical exam, medical decision making, and the department course for this patient. I have also personally directed, reviewed, and agree with the discharge instructions and disposition. <Josiah Shahid - Last Filed: 04/08/18 19:27> Disposition <Humberto Smart III - Last Filed: 04/08/18 07:07> - Disposition Disposition: Transfer of Care Disposition Time: 07:00 Patient Signed Over To: Humberto Smart III <Josiah Shahid - Last Filed: 04/08/18 19:27> - Clinical Impression Clinical Impression: Incarcerated hernia, Abdominal pain - Disposition Condition: FAIR
[2018-04-08 05:46] LABS: BASO % 0.4 % (0.0-2.0); HEMOGLOBIN 13.5 g/dL (12.0-16.0); LYMPH # 1.4 K/uL (1.0-4.3); LYMPH % 12.1 % (20.0-40.0); MEAN CORPUSCULAR HEMOGLOBIN 29.8 pg (27.0-31.0); MEAN CORPUSCULAR HGB CONC 33.2 g/dL (33.0-37.0); MONO # 0.5 K/uL (0.0-0.8); MONO % 4.7 % (0.0-10.0); NEUT # 9.6 K/uL (1.8-7.0); NEUT % 82.8 % (50.0-75.0); RBC 4.51 Mil/uL (3.80-5.20); RED CELL DISTRIBUTION WIDTH 13.6 % (11.5-14.5); WHITE BLOOD COUNT 11.5 K/uL (4.8-10.8)
[2018-04-08 05:54] LABS: ALB/GLOB RATIO 1.1 (1.0-2.1); ALBUMIN 4.8 g/dL (3.5-5.0); ALT/SGPT 35 U/L (9-52); AST/SGOT 37 U/L (14-36); BLOOD UREA NITROGEN 16 mg/dl (7-17); CALCIUM 10.5 mg/dL (8.4-10.2); GFR NON-AFRICAN AMERICAN > 60; LIPASE 44 U/L (23-300)
--- NOTE | 2018-04-08 07:11 | ED PDOC ---
- Laboratory Results Result Diagrams: 04/08/18 05:30 04/08/18 05:30 - ECG O2 Sat by Pulse Oximetry: 100 (RA) Pulse Ox Interpretation: Normal Medical Decision Making Medical Decision Makin Patient care was endorsed by Dr. Shahid pending CT abd/pelvis and reevaluation. Accession No. : [id number] Patient Name / ID : KOLE LANGLEY / [id number] Exam Date : 04/08/2018 08:23:23 ( Approved ) Study Comment : Sex / Age : F / 48Y Creator : Brad Everett MD Dictator : Brad Everett MD Energy Projects Lead : Clam Bed Laborer : Brad Everett MD Approver2 : Report Date : 04/08/2018 09:10:57 My Comment : This report is currently processing and HAS NOT BEEN OFFICIALLY SIGNED BY THE PHYSICIAN - ESTIMATED TIME OF APPROVAL IS 04/08/2018 09:16. Date of service: 04/08/2018 PROCEDURE: CT Abdomen and Pelvis with contrast HISTORY: Abd pain COMPARISON: None. TECHNIQUE: Standard CT scan abdomen pelvis performed following intravenous injection of approximately 98 cc Omnipaque contrast material. The additional 2D sagittal and coronal reformats generated. Abdominal the drain the notch of the again returned the the the the the the the is a Radiation dose: Total exam DLP = 441.32 mGy-cm. This CT exam was performed using one or more of the following dose reduction t echniques: Automated exposure control, adjustment of the mA and/or kV according to patient size, and/or use of iterative reconstruction technique. FINDINGS: LOWER THORAX: Mild passive/dependent the disease both posterior lower lung cassidy. Heart size within range of normal. No significant pericardial effusion. Small hiatal hernia. LIVER: Liver exhibits normal size. Mild fatty hepatic infiltration. GALLBLADDER AND BILE DUCTS: Unremarkable. PANCREAS: Unremarkable. No gross lesion or ductal dilatation. SPLEEN: Unremarkable. ADRENALS: No adrenal lesions. KIDNEYS AND URETERS: Kidneys demonstrate symmetric nephrograms. No evidence of nephrolithiasis or hydronephrosis. VASCULATURE: Unremarkable. No aortic aneurysm. No aortic atherosclerotic calcification or mural plaque present. BOWEL: Evaluation of the bowel is somewhat limited due to the lack of oral contrast material. Stomach is distended with food debris liquid and air.. There appears to be incarcerated loops of small bowel within a right inguinal hernia with small amount of surrounding free fluid. Multiple dilated fluid- filled loops of small bowel are present suggesting a partial or intermittent obstruction however early complete obstruction not completely excluded. Most of the colon is relatively collapsed. No definitive mural wall thickening. APPENDIX: Normal appendix.. PERITONEUM: There is a small amount of free fluid seen within the cul-de-sac.. No free fluid. No free air. LYMPH NODES: Unremarkable. No enlarged lymph nodes. BLADDER: The bladder is physiologically distended. No evidence of intraluminal urinary bladder calculi.. REPRODUCTIVE: Unremarkable. BONES: No acute fractures. OTHER FINDINGS: None. IMPRESSION: There is a right inguinal hernia that contains a the loop of small bowel (apparently incarcerated) and a small amount of fluid with dilatation of small bowel proximal to this herniation. Findings likely represent intermittent or partial small bowel however early complete obstruction not completely excluded. Findings discussed with Dr. Smart at 9:08 a.m. with written down and read back verification. d/w radiology 9am surgery paged 905am at bedside 915a, likely unable to reduce may need OR, admit med surg surgery service NPO surgery eval patient, will take to OR, care transferred to surgical team 930a Scribe Attestation: Documented by Avila Evans, acting as a scribe for Humberto Smart III, DO. Provider Scribe Attestation: All medical record entries made by the Scribe were at my direction and personally dictated by me. I have reviewed the chart and agree that the record accurately reflects my personal performance of the history, physical exam, medical decision making, and the department course for this patient. I have also personally directed, reviewed, and agree with the discharge instructions and disposition. Disposition - Clinical Impression Clinical Impression: Incarcerated hernia - POA Present On Arrival: None - Disposition Disposition: Admitted as In-Patient Disposition Time: 09:00 Condition: FAIR
[2018-04-08 08:21] LABS: SQUAMOUS EPITHIAL 1 /hpf (0-5); URINE BILIRUBIN NEGATIVE (NEGATIVE); URINE BLOOD SMALL (NEGATIVE); URINE CLARITY CLEAR (Clear); URINE COLOR YELLOW (YELLOW); URINE GLUCOSE (UA) NEG (NEGATIVE); URINE LEUKOCYTE ESTERASE NEG Leu/uL (Negative); URINE PROTEIN NEGATIVE (NEGATIVE); URINE UROBILINOGEN 0.2-1.0 mg/dL (0.2-1.0)
[2018-04-08] MEDS ORDERED: Sodium Chloride 0.9% 50 ML IV ONE (08:22)
[2018-04-08] MEDS ORDERED: Iohexol 300 100 ML IJ ONE (08:22)
--- NOTE | 2018-04-08 09:14 | CT ---
Date of service: 04/08/2018 PROCEDURE: CT Abdomen and Pelvis with contrast HISTORY: Abd pain COMPARISON: None. TECHNIQUE: Standard CT scan abdomen pelvis performed following intravenous injection of approximately 98 cc Omnipaque contrast material. The additional 2D sagittal and coronal reformats generated. Abdominal the drain the notch of the again returned the the the the the the the is a Radiation dose: Total exam DLP = 441.32 mGy-cm. This CT exam was performed using one or more of the following dose reduction techniques: Automated exposure control, adjustment of the mA and/or kV according to patient size, and/or use of iterative reconstruction technique. FINDINGS: LOWER THORAX: Mild passive/dependent the disease both posterior lower lung cassidy. Heart size within range of normal. No significant pericardial effusion. Small hiatal hernia. LIVER: Liver exhibits normal size. Mild fatty hepatic infiltration. GALLBLADDER AND BILE DUCTS: Unremarkable. PANCREAS: Unremarkable. No gross lesion or ductal dilatation. SPLEEN: Unremarkable. ADRENALS: No adrenal lesions. KIDNEYS AND URETERS: Kidneys demonstrate symmetric nephrograms. No evidence of nephrolithiasis or hydronephrosis. VASCULATURE: Unremarkable. No aortic aneurysm. No aortic atherosclerotic calcification or mural plaque present. BOWEL: Evaluation of the bowel is somewhat limited due to the lack of oral contrast material. Stomach is distended with food debris liquid and air.. There appears to be incarcerated loops of small bowel within a right inguinal hernia with small amount of surrounding free fluid. Multiple dilated fluid-filled loops of small bowel are present suggesting a partial or intermittent obstruction however early complete obstruction not completely excluded. Most of the colon is relatively collapsed. No definitive mural wall thickening. APPENDIX: Normal appendix.. PERITONEUM: There is a small amount of free fluid seen within the cul-de-sac.. No free fluid. No free air. LYMPH NODES: Unremarkable. No enlarged lymph nodes. BLADDER: The bladder is physiologically distended. No evidence of intraluminal urinary bladder calculi.. REPRODUCTIVE: Unremarkable. BONES: No acute fractures. OTHER FINDINGS: None. IMPRESSION: There is a right inguinal hernia that contains a the loop of small bowel (apparently incarcerated) and a small amount of fluid with dilatation of small bowel proximal to this herniation. Findings likely represent intermittent or partial small bowel however early complete obstruction not completely excluded. Findings discussed with Dr. Smart at 9:08 a.m. with written down and read back verification.
[2018-04-08] MEDS ORDERED: HYDROmorphone 0.5 mg/0.5 ml ISec IVP PRN ×2 (10:19→13:45)
--- NOTE | 2018-04-08 10:24 | CP.PCM.HP ---
History of Present Illness - History of Present Illness History of Present Illness: General Surgery H&P for Dr. Gunn Consult: Incarcerated inguinal hernia CC: Abdominal pain HPI: 48 year old female, past medical history significant for , presents to [facility] emergency department with abdominal pain, nausea, and vomiting. Patient states since last night she has been having significant RLQ abominal pain, 8+ NBNB vomiting, and nausea. She has been unable to tolerate PO intake. She has not passed gas, and last bowel movement was yesterday morning. She tried ibuprofen for pain but threw it up. Palpation and movement aggravate the pain. No alleviating factors that she is aware of. Denies fever, chills, shortness of breath, headache, dizziness, chest pain, or urinary symptoms. PMH: None PSH: C-sectionx1 FH: Noncontributory SH: Denies tobacco, alcohol, or drugs ALL: NKDA Meds: See MAR Present on Admission - Present on Admission Any Indicators Present on Admission: No Review of Systems - Constitutional Constitutional: absent: Chills, Fever - EENT Eyes: absent: Blurred Vision, Change in Vision Nose/Mouth/Throat: absent: Nasal Congestion, Nasal Discharge - Cardiovascular Cardiovascular: absent: Chest Pain, Dyspnea - Respiratory Respiratory: absent: Cough, Dyspnea - Gastrointestinal Gastrointestinal: Abdominal Pain, Nausea, Vomiting - Genitourinary Genitourinary: absent: Difficulty Urinating, Dysuria - Musculoskeletal Musculoskeletal: absent: Back Pain, Neck Pain - Integumentary Integumentary: absent: Bleeding Lesions, Changing Lesions - Psychiatric Psychiatric: absent: Anxiety, Depression Past Patient History - Past Social History Smoking Status: Never Smoked - CARDIAC Hx Hypertension: No - PSYCHIATRIC Hx Depression: No - SURGICAL HISTORY Hx Surgeries: Yes Hx Section: Yes (x1) - ANESTHESIA Hx Anesthesia: Yes Meds Allergies/Adverse Reactions: Allergies Allergy/AdvReac Type Severity Reaction Status Date / Time No Known Allergies Allergy Verified 03/04/17 12:44 Physical Exam - Constitutional Appears: Non-toxic, No Acute Distress - Head Exam Head Exam: ATRAUMATIC, NORMAL INSPECTION, NORMOCEPHALIC - Eye Exam Eye Exam: EOMI - ENT Exam ENT Exam: Mucous Membranes Dry - Respiratory Exam Respiratory Exam: NORMAL BREATHING PATTERN. absent: Respiratory Distress - Cardiovascular Exam Cardiovascular Exam: REGULAR RHYTHM. absent: Tachycardia - GI/Abdominal Exam GI & Abdominal Exam: Guarding, Hernia, Mass, Rebound, Soft, Tenderness. absent: Distended - Neurological Exam Neurological exam: Alert, Oriented x3 - Psychiatric Exam Psychiatric exam: Anxious, Normal Affect, Normal Mood - Skin Skin Exam: Dry, Intact, Normal Color, Warm Results - Vital Signs Recent Vital Signs: Last Vital Signs Temp 98.2 F 04/08/18 04:36 Pulse 79 04/08/18 04:36 Resp 61 H 04/08/18 07:48 BP 120/80 04/08/18 07:48 Pulse Ox 100 04/08/18 09:59 - Labs Result Diagrams: 04/08/18 05:30 04/08/18 05:30 Labs: Laboratory Results - last 24 hr 04/08/18 04/08/18 04/08/18 05:30 05:30 07:22 WBC 11.5 H RBC 4.51 Hgb 13.5 D Hct 40.6 MCV 90.0 MCH 29.8 MCHC 33.2 RDW 13.6 Plt Count 150 MPV 10.0 Neut % (Auto) 82.8 H Lymph % (Auto) 12.1 L Nicholas % (Auto) 4.7 Eos % (Auto) 0.0 Baso % (Auto) 0.4 Neut # (Auto) 9.6 H Lymph # (Auto) 1.4 Nicholas # (Auto) 0.5 Eos # (Auto) 0.0 Baso # (Auto) 0.0 Sodium 140 Potassium 4.1 Chloride 101 Carbon Dioxide 28 Anion Gap 15 BUN 16 Creatinine 0.7 Est GFR ( Amer) > 60 Est GFR (Non-Af Amer) > 60 Random Glucose 147 H Calcium 10.5 H Total Bilirubin 0.7 AST 37 H D ALT 35 Alkaline Phosphatase 129 H Total Protein 9.1 H Albumin 4.8 Globulin 4.3 H Albumin/Globulin Ratio 1.1 Lipase 44 Urine Color Yellow Urine Clarity Clear Urine pH 6.0 Ur Specific [place] 1.011 Urine Protein Negative Urine Glucose (UA) Neg Urine Ketones Negative Urine Blood Small Urine Nitrate Negative Urine Bilirubin Negative Urine Urobilinogen 0.2-1.0 Ur Leukocyte Esterase Neg Urine RBC (Auto) 4 H Urine Microscopic WBC 1 Ur Squamous Epith Cells 1 Assessment & Plan - Assessment and Plan (Free Text) Assessment: 48F w/ abdominal pain, nausea, vomiting CT evidence of right sided incarcerated inguinal hernia with possible obstruction Plan: NPO IVF Antiemetics and analgesics NGT insertion I&Os Vitals Q6 Type and Screen PT/INR CXR ECG OR today Further recommendations per Dr. Luis A Avelar PGY1
[2018-04-08 10:57] LABS: INR 1.1; PROTHROMBIN TIME 12.8 Seconds (9.8-13.1)
[2018-04-08 11:00] LABS: PARTIAL THROMBOPLASTIN TIME 32.9 Seconds (25.6-37.1)
[2018-04-08] MEDS: Lactated Ringer's 1,000 ML IV SCH ×2 (11:18→22:24)
[2018-04-08] MEDS ORDERED: Lidocaine 4% (Laryng-O-Jet) Kit MM ONE (12:09)
[2018-04-08] MEDS ORDERED: Midazolam 2 MG/2 ML VIAL ONE (12:09)
[2018-04-08] MEDS ORDERED: Propofol 10 mg/ml Inj (20 ML) ONE (12:09)
[2018-04-08] MEDS ORDERED: Rocuronium 10 mg/ml (5 ml) ONE (12:09)
[2018-04-08] MEDS ORDERED: ceFAZolin IV 1 gm in Dextrose 2 GM/100 ML BAG IVPB ONE (12:59)
[2018-04-08] MEDS ORDERED: Lactated Ringer's 1,000 ML IV ONE (13:06)
[2018-04-08] MEDS ORDERED: ePHEDrine 50 mg/ml Inj ONE (13:08)
[2018-04-08] MEDS ORDERED: Neostigmine 1:1000 (1 mg/ml) Inj ONE (13:19)
[2018-04-08] MEDS ORDERED: Succinylcholine 200 mg/10 ml Inj IV ONE (13:24)
[2018-04-08] MEDS ORDERED: Sodium Chloride 0.9% 500 ML IV ONE (13:34)
[2018-04-08] MEDS ORDERED: Lactated Ringer's 500 ML IV ONE (13:35)
--- NOTE | 2018-04-08 14:12 | PCM.SURG1 ---
Surgeon's Initial Post Op Note - Surgeon's Notes Surgeon: Dr Gunn Cigarette Maker: Dr Augustine PGY4 Type of Anesthesia: General Endo Pre-Operative Diagnosis: incarcerated inguinal hernia (right) Operative Findings: incarcerated direct inguinal hernia. viable bowel Post-Operative Diagnosis: as above Operation Performed: right herniorapphy w/ mesh Specimen/Specimens Removed: hernia sac Estimated Blood Loss: EBL {In ML}: 5 Blood Products Given: N/A Drains Used: No Drains Post-Op Condition: Good Date of Surgery/Procedure: 04/08/18 Time of Surgery/Procedure: 14:12
[2018-04-08] MEDS ORDERED: Oxycodone/Acetaminophen 5/325 mg Tab PO PRN (14:13)
--- NOTE | 2018-04-08 17:20 | RAD ---
Date of service: 04/08/2018 HISTORY: preop COMPARISON: None available. FINDINGS: LUNGS: No active pulmonary disease. PLEURA: No significant pleural effusion identified, no pneumothorax apparent. CARDIOVASCULAR: No aortic atherosclerotic calcification present. Borderline/mild cardiomegaly.. No pulmonary vascular congestion. OSSEOUS STRUCTURES: No significant abnormalities. VISUALIZED UPPER ABDOMEN: Normal. OTHER FINDINGS: None. IMPRESSION: No active disease.
--- NOTE | 2018-04-08 22:48 | OP ---
PROCEDURE DATE: 04/08/2018 PREOPERATIVE DIAGNOSIS: Incarcerated right inguinal hernia. SURGEON: Luis Manuel Gunn MD TRIAGE NURSE: Clarence Augustine DO, PGY-4. [employer] OPERATOR HELPER: Jennifer Boykin MD INDICATIONS: Mrs. Williamson is a 48-year-old woman who presented to the ED with a symptomatic right inguinal hernia. Hernia on CAT scan appeared to contain loops of small bowel causing an obstruction. Attempts were made to reduce the hernia within the emergency room and were unsuccessful. Hernia was deemed incarcerated, and the patient was taken to the operating room. DESCRIPTION OF PROCEDURE: The patient was brought to the operating room where a surgical safety checklist was performed. Preoperatively, 2 gm of IV Ancef was administered and general anesthetic was used. In the supine position, the right groin was prepped and draped in a sterile fashion. After the appropriate time-out, identifying the correct patient, correct surgery, and correct laterality, a scalpel was used to make an oblique skin incision parallel and superior to the inguinal ligament. This was deepened down through Torsten's and Camper's fascia using electrocautery down to the external oblique aponeurosis. The external oblique aponeurosis was opened in the direction of its fibers through the external ring using Metzenbaum scissors. At this point, the inguinal floor was exposed by creating superior and inferior flaps of the external oblique. The round ligament was identified and mobilized at the pubic tubercle and isolated using a Marek drain. The anteromedial aspect of the cord was then examined, and an indirect hernia sac was identified. The sac was carefully dissected free from the round ligament down to the level of the internal ring. As soon as the external ring was opened, the majority of the bowel spontaneously reduced into the peritoneum. At this point, the sac was opened. As the contents had already reduced into the peritoneal cavity, they were brought back out to the sac to expose the bowel to ensure that there was no ischemic bowel and everything appeared viable. At this point, we reduced the bowel contents back into the peritoneal cavity, the sac was twisted and suture ligated using 2-0 Vicryl. Any redundant sac was excised using electrocautery, and then the stump of the sac was checked for hemostasis and allow to retract into the abdomen. A plug was used to restore the normal anatomy of the internal ring, and the plug was sutured into place using 2-0 Prolene. The floor of the inguinal canal was then assessed digitally and found to be intact. Clarence Augustine DO Luis Manuel Gunn MD (Delete this signature block when dictator is a preceptor.)
--- NOTE | 2018-04-08 22:59 | OP ---
PROCEDURE DATE: 04/08/2018 PREOPERATIVE DIAGNOSIS: Incarcerated right inguinal hernia. POSTOPERATIVE DIAGNOSIS: Incarcerated right inguinal hernia. SURGEON: Luis Manuel Gunn MD NETWORK RELATIONS CONSULTANT: Clarence Augustine DO ANESTHESIOLOGIST: Dr. Boykin. ANESTHESIA: General anesthesia. INDICATIONS FOR THE PROCEDURE: The patient is a 48-year-old female that presented to the emergency room with an incarcerated right inguinal hernia, found to have bowel contents on CAT scan. Attempted reduction was performed in the emergency room and unsuccessful. So, the patient was deemed to need an emergent surgery. DESCRIPTION OF PROCEDURE: The patient was brought to the operating room where a surgical safety checklist was performed. Preoperatively, 2 g of IV Ancef was administered and general anesthetic was used. After induction of anesthesia and in the supine position, the right groin was prepped and draped in the sterile fashion. A scalpel was used to make an oblique incision parallel and superior to the inguinal ligament. This was deepened down to the Camper's and Torsten's fascia using electrocautery down to the external oblique aponeurosis. The external oblique aponeurosis was opened in the direction of its fibers using Metzenbaum scissors. At this point, the inguinal floor was exposed by creating superior and inferior flaps to the external oblique. The round ligament was identified, mobilized at the pubic tubercle, and isolated using a Marek drain, and then the anteromedial aspect of the cord was examined, and indirect hernia sac was identified. The sac was carefully dissected free from the round ligament down to the level of the internal ring. The sac was opened, and the bowel content was spontaneously reduced into the peritoneal cavity. An Allis was used to bring the small bowel back out through the sac to determine that there was, in fact, no ischemic bowel and everything appeared viable. At this point, the sac was then twisted and suture ligated using 2-0 Vicryl. Any redundant sac was excised using Metzenbaum scissors. The stump of the sac was checked for hemostasis and allowed to retract into the abdomen. A plug was placed to restore the normal anatomy of the internal ring and sutured into place using 2-0 Prolene sutures. The floor of the inguinal canal was then incised digitally and found to be intact. To repair the floor of the canal, a polypropylene mesh was cut to the size through the lateral opening starting at the pubic tubercle. The mesh was secured with interrupted 2-0 Prolene sutures, and they reflected edge of the inguinal ligament inferiorly and the conjoint tendon superiorly. The ends of the patch were then sutured laterally as well to the conjoint tendon. Hemostasis was achieved using electrocautery. The external oblique aponeurosis was reapproximated using a continuous 2-0 Vicryl suture, paying particular attention into the ilioinguinal nerve protected from injury. The Torsten's fascia was closed with several interrupted 3-0 Vicryl sutures, and the skin was closed using 4-0 subcuticular continuous monofilament suture. The operative field was cleaned and dried, and Steri-Strips were applied. The patient tolerated the procedure well. Estimated blood loss was 5 mL. Extubated and transferred to PACU in stable condition. There were no intraoperative complications. All instruments and sponge counts were correct. Surgical debriefing was performed. Clarence Augustine DO
--- NOTE | 2018-04-08 23:15 | CP.PCM.DIS ---
Provider - Provider Date of Admission: 04/08/18 09:56 Attending physician: Luis Manuel Gunn MD Time Spent in preparation of Discharge (in minutes): 60 Hospital Course - Lab Results Lab Results: Most Recent Lab Values WBC 11.5 K/uL (4.8-10.8) H 04/08/18 05:30 RBC 4.51 Mil/uL (3.80-5.20) 04/08/18 05:30 Hgb 13.5 g/dL (12.0-16.0) D 04/08/18 05:30 Hct 40.6 % (34.0-47.0) 04/08/18 05:30 MCV 90.0 fl (81.0-99.0) 04/08/18 05:30 MCH 29.8 pg (27.0-31.0) 04/08/18 05:30 MCHC 33.2 g/dL (33.0-37.0) 04/08/18 05:30 RDW 13.6 % (11.5-14.5) 04/08/18 05:30 Plt Count 150 K/uL (130-400) 04/08/18 05:30 MPV 10.0 fl (7.2-11.7) 04/08/18 05:30 Neut % (Auto) 82.8 % (50.0-75.0) H 04/08/18 05:30 Lymph % (Auto) 12.1 % (20.0-40.0) L 04/08/18 05:30 [place] % (Auto) 4.7 % (0.0-10.0) 04/08/18 05:30 Eos % (Auto) 0.0 % (0.0-4.0) 04/08/18 05:30 Baso % (Auto) 0.4 % (0.0-2.0) 04/08/18 05:30 Neut # (Auto) 9.6 K/uL (1.8-7.0) H 04/08/18 05:30 Lymph # (Auto) 1.4 K/uL (1.0-4.3) 04/08/18 05:30 [place] # (Auto) 0.5 K/uL (0.0-0.8) 04/08/18 05:30 Eos # (Auto) 0.0 K/uL (0.0-0.7) 04/08/18 05:30 Baso # (Auto) 0.0 K/uL (0.0-0.2) 04/08/18 05:30 PT 12.8 Seconds (9.8-13.1) 04/08/18 10:30 INR 1.1 04/08/18 10:30 APTT 32.9 Seconds (25.6-37.1) 04/08/18 10:30 Sodium 140 mmol/l (132-148) 04/08/18 05:30 Potassium 4.1 MMOL/L (3.6-5.0) 04/08/18 05:30 Chloride 101 mmol/L (98-107) 04/08/18 05:30 Carbon Dioxide 28 mmol/L (22-30) 04/08/18 05:30 Anion Gap 15 (10-20) 04/08/18 05:30 BUN 16 mg/dl (7-17) 04/08/18 05:30 Creatinine 0.7 mg/dl (0.7-1.2) 04/08/18 05:30 Est GFR ( Amer) > 60 04/08/18 05:30 Est GFR (Non-Af Amer) > 60 04/08/18 05:30 Random Glucose 147 mg/dL (65-105) H 04/08/18 05:30 Calcium 10.5 mg/dL (8.4-10.2) H 04/08/18 05:30 Total Bilirubin 0.7 mg/dl (0.2-1.3) 04/08/18 05:30 AST 37 U/L (14-36) H D 04/08/18 05:30 ALT 35 U/L (9-52) 04/08/18 05:30 Alkaline Phosphatase 129 U/L (38-126) H 04/08/18 05:30 Total Protein 9.1 G/DL (6.3-8.2) H 04/08/18 05:30 Albumin 4.8 g/dL (3.5-5.0) 04/08/18 05:30 Globulin 4.3 gm/dL (2.2-3.9) H 04/08/18 05:30 Albumin/Globulin Ratio 1.1 (1.0-2.1) 04/08/18 05:30 Lipase 44 U/L (23-300) 04/08/18 05:30 Urine Color Yellow (YELLOW) 04/08/18 07:22 Urine Clarity Clear (Clear) 04/08/18 07:22 Urine pH 6.0 (5.0-8.0) 04/08/18 07:22 Ur Specific [place] 1.011 (1.003-1.030) 04/08/18 07:22 Urine Protein Negative mg/dL (NEGATIVE) 04/08/18 07:22 Urine Glucose (UA) Neg mg/dL (NEGATIVE) 04/08/18 07:22 Urine Ketones Negative mg/dL (NEGATIVE) 04/08/18 07:22 Urine Blood Small (NEGATIVE) 04/08/18 07:22 Urine Nitrate Negative (NEGATIVE) 04/08/18 07:22 Urine Bilirubin Negative (NEGATIVE) 04/08/18 07:22 Urine Urobilinogen 0.2-1.0 mg/dL (0.2-1.0) 04/08/18 07:22 Ur Leukocyte Esterase Neg Erum/uL (Negative) 04/08/18 07:22 Urine RBC (Auto) 4 /hpf (0-3) H 04/08/18 07:22 Urine Microscopic WBC 1 /hpf (0-5) 04/08/18 07:22 Ur Squamous Epith Cells 1 /hpf (0-5) 04/08/18 07:22 Blood Type O POSITIVE 04/08/18 10:30 Antibody Screen Negative 04/08/18 10:30 BBK History Checked Patient has bt 04/08/18 10:30 - Hospital Course Hospital Course: 48 year old female presented to the [facility] ED with abdominal pain, nausea, and vomiting since 1 day. Patient states she had never had this pain before. Past medical history included a 1 year ago. Thorough workup was done in the ED. CT scan showed an incarcerated right inguinal hernia. Patient was prepared for the operating room for a repair of right inguinal hernia performed by Dr. Gunn. Patient tolerated the procedure with no complications. Patient was taken to PACU with and back to the floors where she voided, ambulated, and tolerated a regular diet. Patient subsequently discharged home with follow up instructions and pain medication. Above is a brief summary. For a full hospital course, please refer to medical records. Discharge Exam - Head Exam Head Exam: ATRAUMATIC, NORMAL INSPECTION, NORMOCEPHALIC - Eye Exam Eye Exam: EOMI - ENT Exam ENT Exam: Mucous Membranes Moist - Respiratory Exam Respiratory Exam: NORMAL BREATHING PATTERN. absent: Respiratory Distress - Cardiovascular Exam Cardiovascular Exam: REGULAR RHYTHM. absent: Tachycardia - GI/Abdominal Exam GI & Abdominal Exam: Normal Bowel Sounds, Soft, Tenderness. absent: Distended, Guarding, Rebound - Neurological Exam Neurological exam: Alert, Oriented x3 - Psychiatric Exam Psychiatric exam: Normal Affect, Normal Mood - Skin Skin Exam: Dry, Intact, Normal Color, Warm Discharge Plan - Follow Up Plan Condition: GOOD Disposition: HOME/ ROUTINE Patient education suggested?: Yes Instructions: Hernia Repair (DC), Groin Hernia Repair (DC) Additional Instructions: Please follow up with your surgeon, Dr. Gunn, in 2 weeks. Please take all medications as prescribed to you. Resume all home medications. Resume regular diet. Activity as tolerated. No heavy lifting greater than 20 lbs for the next 4-6 weeks. Ok to shower. Please refrain from pools, baths, or other large bodies of water for 2 weeks. If symptoms worsen, please return to the ED. Referrals: Luis Manuel Gunn MD [Staff Provider] -
[2018-04-09 06:12] VITALS: RESP 20
[2018-04-09 08:07] VITALS: BP 102/65; PULSE 66; TEMP 98.8; O2SAT 97
--- NOTE | 2018-04-09 21:31 | CARD ---
APPROVED REPORT Date of service: 04/08/2018 EKG Measurement Heart [id number] <Conclusion> Sinus rhythm with sinus arrhythmia with occasional premature ventricular complexes Otherwise normal ECG
== END 2018-04-09 10:30 | disposition home or self-care (01) | DRG 228 ==
LOC: H.ER 04:28 → H.ERHOLD 09:56 → H.MEDSURG1 15:55
PROVIDERS: ADMIT Surgery; ATTEND Surgery
PROC: 0YU50JZ Supplement Right Inguinal Region with Synthetic Substitute, Open Approach (ICD-10-PCS; principal; 2018-04-08 12:00)
DX: K40.30 Unilateral inguinal hernia, with obstruction, without gangrene, not specified as recurrent (principal)

== ENCOUNTER 2018-04-19 11:00 | Emergency (ER) | payer SELFPAY | END 2018-04-19 13:40 | disposition home or self-care (01) | LOC: H.EDDOWN 11:00 | DX: Z48.02 Encounter for removal of sutures (principal) ==